=== PATIENT | female | born 1945 | race American Indian/Alaskan Native ===

== ENCOUNTER 2022-04-19 16:34 | Inpatient (IN) | payer MEDICARE ==
[~2022-04-19] VITALS: Ht 149.9 cm; Wt 71.4 kg
[~2022-04-19 16:34] MED LIST: HYDROchlorothiazide tablet PO; LEVO125T PO; MELO-102 PO; METF-900 PO; ONDA8TAB13 PO; SOTA80TA46 PO; SUMA25TA35 PO; TELM80TA2 PO
[2022-04-19 17:20] LABS: BASOPHILS % (AUTO) 0.4 % (0-1); EOSINOPHILS # (AUTO) 0.1 X10'3 (0-0.9); EOSINOPHILS % (AUTO) 1.9 % (0-6); HEMATOCRIT 37.9 % (35.0-45.0); HEMOGLOBIN 13.1 g/dl (12.0-16.0); LYMPHOCYTES # (AUTO) 2.1 X10'3 (1.1-4.8); LYMPHOCYTES % (AUTO) 32.7 % (21-51); MEAN CORPUSCULAR HEMOGLOBIN 29.6 PG (27.0-31.0); MEAN CORPUSCULAR HGB CONC 34.4 g/dL (33.0-36.5); MEAN CORPUSCULAR VOLUME 85.8 FL (78-98); MEAN PLATELET VOLUME 8.8 FL (7.4-10.4); MONOCYTES # (AUTO) 0.6 X10'3 (0-0.9); MONOCYTES % (AUTO) 8.6 % (2-12); NEUTROPHILS # (AUTO) 3.7 X10'3 (1.8-7.7); NEUTROPHILS % (AUTO) 56.4 % (42-75); PLATELET COUNT 207 X10'3 (140-440); RED BLOOD COUNT 4.42 X10'6 (4.20-5.60); RED CELL DISTRIBUTION WIDTH 14.1 % (11.5-14.5); WHITE BLOOD COUNT 6.5 X10'3 (4.5-11.0)
[2022-04-19 17:44] LABS: ALANINE AMINOTRANSFERASE 17 U/L (12-78); ALBUMIN 3.6 G/DL (3.4-5.0); ALBUMIN/GLOBULIN RATIO 1.2 (1.1-1.5); ALKALINE PHOSPHATASE 97 IU/L (46-116); ANION GAP 9 (8-16); ASPARTATE AMINO TRANSFERASE 14 U/L (10-37); BILIRUBIN,TOTAL 0.5 MG/DL (0.1-1.0); BLOOD UREA NITROGEN 13 MG/DL (7-18); BUN/CREATININE RATIO 16.5 (6.6-38.0); CALCIUM 9.6 MG/DL (8.5-10.1); CHLORIDE 98 MMOL/L (99-107); CREATININE 0.79 MG/DL (0.40-0.90); GLUCOSE 111 MG/DL (70-104); POTASSIUM 3.6 MMOL/L (3.5-5.1); SODIUM 135 MMOL/L (135-145); TOTAL PROTEIN 6.7 G/DL (6.4-8.2); eGFR 70 ML/MIN
[2022-04-19] MEDS ORDERED: nitroGLYCERIN 1gm ointment UD TP ONE (18:35)
[2022-04-19] MEDS ORDERED: ondansetron/PF 4mg/2ml inj IV PRN (19:25)
[2022-04-19] MEDS ORDERED: mag hydrox/Alum hydrox/simeth 30ml oral suspension PO PRN (19:25)
[2022-04-19] MEDS ORDERED: POTASSIUM BICARB 20meq eff tab 20 MEQ TABLET.EFF PO PRN ×2 (19:25)
[2022-04-19] MEDS ORDERED: magnesium 4gm in 100ml NS 100 ML IV PRN (19:25)
[2022-04-19] MEDS ORDERED: magnesium 2GM in 50ml NS 50 ML IV PRN (19:25)
[2022-04-19] MEDS ORDERED: magnesium hydroxide 30ml (MOM) UD suspension PO PRN (19:25)
[2022-04-19] MEDS ORDERED: PERFLUTREN PROTEIN-A MICROSPHR (Optison) 0.22 MG/ML 3ML VIAL IV ONE (19:25)
[2022-04-19] MEDS ORDERED: potassium CL 10mEq/100ml bag 100 ML IV PRN (19:25)
[2022-04-19] MEDS ORDERED: magnesium Cl slow-release 64mg tablet PO PRN (19:25)
[2022-04-19] MEDS ORDERED: acetaminophen 325mg tablet PO PRN (19:25)
[2022-04-19] MEDS ORDERED: insulin Lispro (HumaLOG) vial - multi-dose SQ SCH (19:30)
[2022-04-19] MEDS ORDERED: DEXTROSE 15 GM of carb/4 tabs (each vial/BOTTLE has 4 tablets) PO PRN ×2 (19:30)
[2022-04-19] MEDS ORDERED: MESSAGE TO PHARMACY PO ONE (19:30)
[2022-04-19] MEDS ORDERED: metoprolol tartrate 1mg/ml inj IV PRN (19:30)
[2022-04-19] MEDS ORDERED: regadenoson 0.4mg/5ml syringe IV PRN (19:30)
[2022-04-19] MEDS ORDERED: dextrose 50%-water 50ml dispensing syringe IV PRN ×2 (19:30)
[2022-04-19] MEDS ORDERED: aminophylline 250mg/10ml inj. IV PRN (19:30)
[2022-04-19] MEDS ORDERED: nitroGLYCERIN 0.4mg SUBLingual tab SL PRN (19:30)
[2022-04-19] MEDS ORDERED: glucagon, human recombinant 1mg kit SUBCUT PRN (19:30)
[2022-04-19] MEDS ORDERED: metoprolol tartrate 50mg tablet PO ONE (19:50)
--- NOTE | 2022-04-19 19:52 | NUR ---
NOTIFIED. DR. BRUCE OF . MEDS WILL BE ORDERED.
[2022-04-19 19:59] LABS: MAGNESIUM 1.8 MG/DL (1.5-2.4); POTASSIUM 3.5 MMOL/L (3.5-5.1)
[2022-04-19] MEDS: docusate sod 100mg capsule PO SCH (20:00)
[2022-04-19] MEDS: K and/or MAG REPLACEMENT MC SCH (20:00)
[2022-04-19] MEDS ORDERED: sotalol HCl 40mg (1/2 tablet) PO SCH (20:00)
[2022-04-19] MEDS: heparin, porcine 5000 units/ml vial SQ SCH (20:10)
[2022-04-19] MEDS ORDERED: amLODIPine 5mg tablet PO ONE ×2 (21:00→22:20)
[2022-04-19] MEDS ORDERED: amLODIPine 5mg tablet ONE (21:02)
--- NOTE | 2022-04-19 23:00 | NUR ---
Received report from Kitty MCINTOSH in the ER. Pt arrived on the unit via wheelchair and was able to ambulate using her cane to her bed. VSS, on room air, SL, pt has no signs of distress. Will continue to monitor.
[2022-04-19 23:22] VITALS: BP 214/75
[2022-04-20] VITALS (14 sets, daily range): BP systolic 102–178; BP diastolic 53–81
[2022-04-20 01:45] LABS: BASOPHILS % (AUTO) 0.6 % (0-1); EOSINOPHILS # (AUTO) 0.1 X10'3 (0-0.9); HEMOGLOBIN 12.4 g/dl (12.0-16.0); LYMPHOCYTES # (AUTO) 1.8 X10'3 (1.1-4.8); LYMPHOCYTES % (AUTO) 30.7 % (21-51); MEAN CORPUSCULAR HEMOGLOBIN 29.7 PG (27.0-31.0); MEAN CORPUSCULAR HGB CONC 34.6 g/dL (33.0-36.5); MEAN CORPUSCULAR VOLUME 85.9 FL (78-98); MEAN PLATELET VOLUME 8.9 FL (7.4-10.4); MONOCYTES # (AUTO) 0.4 X10'3 (0-0.9); MONOCYTES % (AUTO) 7.5 % (2-12); NEUTROPHILS # (AUTO) 3.5 X10'3 (1.8-7.7); NEUTROPHILS % (AUTO) 59.2 % (42-75); PLATELET COUNT 194 X10'3 (140-440); RED BLOOD COUNT 4.19 X10'6 (4.20-5.60); RED CELL DISTRIBUTION WIDTH 13.7 % (11.5-14.5); WHITE BLOOD COUNT 5.9 X10'3 (4.5-11.0)
[2022-04-20 02:00] LABS: ALANINE AMINOTRANSFERASE 16 U/L (12-78); ALBUMIN 3.1 G/DL (3.4-5.0); ALBUMIN/GLOBULIN RATIO 1.1 (1.1-1.5); ALKALINE PHOSPHATASE 91 IU/L (46-116); ANION GAP 5 (8-16); ASPARTATE AMINO TRANSFERASE 13 U/L (10-37); BILIRUBIN,TOTAL 0.4 MG/DL (0.1-1.0); BLOOD UREA NITROGEN 17 MG/DL (7-18); BUN/CREATININE RATIO 20.2 (6.6-38.0); CALCIUM 9.4 MG/DL (8.5-10.1); CHLORIDE 99 MMOL/L (99-107); CREATININE 0.84 MG/DL (0.40-0.90); GLUCOSE 138 MG/DL (70-104); POTASSIUM 3.4 MMOL/L (3.5-5.1); SODIUM 135 MMOL/L (135-145); TOTAL CARBON DIOXIDE 30.7 MMOL/L (24-32); eGFR 66 ML/MIN
[2022-04-20 02:03] LABS: CHOL/HDL RATIO 5.7 (0.00-4.99); CHOLESTEROL 221 MG/DL (0-200); HDL CHOLESTEROL 39 MG/DL (35-60); LDL CHOLESTEROL 131 MG/DL (50-100); MAGNESIUM 1.7 MG/DL (1.5-2.4); TRIGLYCERIDES 348 MG/DL (20-135)
--- NOTE | 2022-04-20 06:29 | NUR ---
Problems reprioritized. Patient report given, questions answered & plan of care reviewed with Suha MCINTOSH.
[2022-04-20] MEDS ORDERED: HYDR12.55 PO (07:23)
--- NOTE | 2022-04-20 07:47 | NUR ---
Diabetes consult: Noted pt w/ hx of DM A1c 6 on 03/09/22. Well controlled and appropriate, DM ed not indicated at this time. Addendum: 04/20/22 at [address] Amended: Links added.
[2022-04-20] MEDS: docusate sod 100mg capsule PO SCH ×2 (08:00→19:46)
[2022-04-20] MEDS: K and/or MAG REPLACEMENT MC SCH ×2 (08:00→20:00)
--- NOTE | 2022-04-20 10:00 | NUR ---
Spoke with Hospitalist during rounds. He is aware of yesterdays k level and does not want a redraw lab today.
[2022-04-20] MEDS: levoTHYROXINE 125mcg tablet PO SCH (10:04)
[2022-04-20] MEDS: aspirin 81mg tab.chew PO SCH (10:04)
[2022-04-20] MEDS: sotalol 80mg tablet PO SCH ×2 (10:04→19:46)
[2022-04-20] MEDS: heparin, porcine 5000 units/ml vial SQ SCH ×2 (10:05→19:47)
[2022-04-20] MEDS: losartan 50mg tablet PO SCH (10:57)
--- NOTE | 2022-04-20 11:53 | NUR ---
PAGER ID: [phone] MESSAGE: Yudelka Waterman [id number] Pt. c/o migraine. Can she have something? Refusing Maryjane. Suha [phone]
[2022-04-20] MEDS ORDERED: acetaminophen 325mg tablet PO ONE (12:40)
[2022-04-20] MEDS ORDERED: ondansetron 4mg rapidly disintigrating tab PO PRN (13:15)
--- NOTE | 2022-04-20 18:26 | NUR ---
GAVE REPORT TO DEBRA HUDDLESTON.
--- NOTE | 2022-04-20 18:30 | NUR ---
Patient in room PCU 3023. I have received report from radhames and had the opportunity to ask questions and assume patient care.
[2022-04-21 06:37] LABS: BASOPHILS % (AUTO) 0.5 % (0-1); EOSINOPHILS # (AUTO) 0.1 X10'3 (0-0.9); EOSINOPHILS % (AUTO) 2.1 % (0-6); HEMATOCRIT 39.5 % (35.0-45.0); HEMOGLOBIN 13.6 g/dl (12.0-16.0); LYMPHOCYTES # (AUTO) 1.6 X10'3 (1.1-4.8); LYMPHOCYTES % (AUTO) 32.1 % (21-51); MEAN CORPUSCULAR HEMOGLOBIN 30.1 PG (27.0-31.0); MEAN CORPUSCULAR HGB CONC 34.5 g/dL (33.0-36.5); MEAN CORPUSCULAR VOLUME 87.3 FL (78-98); MONOCYTES # (AUTO) 0.4 X10'3 (0-0.9); MONOCYTES % (AUTO) 7.1 % (2-12); NEUTROPHILS # (AUTO) 2.9 X10'3 (1.8-7.7); NEUTROPHILS % (AUTO) 58.2 % (42-75); PLATELET COUNT 214 X10'3 (140-440); RED BLOOD COUNT 4.53 X10'6 (4.20-5.60); RED CELL DISTRIBUTION WIDTH 13.9 % (11.5-14.5)
--- NOTE | 2022-04-21 06:37 | NUR ---
Problems reprioritized. Patient report given, questions answered & plan of care reviewed with melvin.
--- NOTE | 2022-04-21 06:40 | NUR ---
Patient in room PCU 3023. I have received report from Dirk Dixon and had the opportunity to ask questions and assume patient care.
[2022-04-21 07:00] VITALS: BP 127/54
[2022-04-21] MEDS: levoTHYROXINE 125mcg tablet PO SCH (07:12)
[2022-04-21] MEDS: docusate sod 100mg capsule PO SCH (07:12)
[2022-04-21] MEDS: sotalol 80mg tablet PO SCH (07:12)
[2022-04-21] MEDS: heparin, porcine 5000 units/ml vial SQ SCH (07:13)
[2022-04-21] MEDS: losartan 50mg tablet PO SCH (07:13)
[2022-04-21 07:16] LABS: ALANINE AMINOTRANSFERASE 17 U/L (12-78); ALBUMIN 3.4 G/DL (3.4-5.0); ALBUMIN/GLOBULIN RATIO 1.1 (1.1-1.5); ALKALINE PHOSPHATASE 90 IU/L (46-116); ANION GAP 11 (8-16); ASPARTATE AMINO TRANSFERASE 15 U/L (10-37); BILIRUBIN,TOTAL 0.5 MG/DL (0.1-1.0); BLOOD UREA NITROGEN 23 MG/DL (7-18); BUN/CREATININE RATIO 28.4 (6.6-38.0); CALCIUM 9.8 MG/DL (8.5-10.1); CHLORIDE 98 MMOL/L (99-107); CREATININE 0.81 MG/DL (0.40-0.90); GLUCOSE 139 MG/DL (70-104); MAGNESIUM 1.9 MG/DL (1.5-2.4); POTASSIUM 3.7 MMOL/L (3.5-5.1); SODIUM 138 MMOL/L (135-145); TOTAL CARBON DIOXIDE 29.4 MMOL/L (24-32); TOTAL PROTEIN 6.5 G/DL (6.4-8.2); eGFR 68 ML/MIN
[2022-04-21] MEDS: aspirin 81mg tab.chew PO SCH (07:22)
[2022-04-21] MEDS: K and/or MAG REPLACEMENT MC SCH (08:00)
[2022-04-21 11:00] VITALS: BP 137/59
--- NOTE | 2022-04-21 11:35 | NUR ---
Patient alert and oriented with no s/s of apparent acute distress. Discussed with patient discharge instructions. Patient verbalized understanding of teaching and stated no questions. Patient wanting to take shower before discharge.
--- NOTE | 2022-04-21 12:20 | NUR ---
Patient alert and oriented in no apparent acute distress at time of DC. Patient dc'd with all personal belongings escorted out in wheelchair accompanied by x1 staff.
== END 2022-04-21 12:20 | disposition home or self-care (01) | DRG 313 ==
LOC: ER 16:34 → ED HOLD 19:28 → PCU 3S 23:00
PROVIDERS: ADMIT Internal Medicine; ATTEND Internal Medicine
PROC: 4A02XM4 Measurement of Cardiac Total Activity, External Approach (ICD-10-PCS; principal; 2022-04-20)
PROC: 3E033HZ Introduction of Radioactive Substance into Peripheral Vein, Percutaneous Approach (ICD-10-PCS; 2022-04-20)
DX: R07.89 Other chest pain (principal); I48.0 Paroxysmal atrial fibrillation; I10 Essential (primary) hypertension; E11.9 Type 2 diabetes mellitus without complications; E03.9 Hypothyroidism, unspecified; E78.00 Pure hypercholesterolemia, unspecified; I08.1 Rheumatic disorders of both mitral and tricuspid valves; I25.10 Atherosclerotic heart disease of native coronary artery without angina pectoris; M47.814 Spondylosis without myelopathy or radiculopathy, thoracic region; Z79.82 Long term (current) use of aspirin; Z79.84 Long term (current) use of oral hypoglycemic drugs; Z79.890 Hormone replacement therapy; Z82.49 Family history of ischemic heart disease and other diseases of the circulatory system; Z85.850 Personal history of malignant neoplasm of thyroid; Z86.73 Personal history of transient ischemic attack (TIA), and cerebral infarction without residual deficits; Z90.710 Acquired absence of both cervix and uterus; Z88.0 Allergy status to penicillin; Z90.49 Acquired absence of other specified parts of digestive tract; Z79.899 Other long term (current) drug therapy
CPT/HCPCS: 36415; 71045; 78452; 80053; 80061; 82948; 83036; 83735; 83880; 84132; 84484; 85025; 87081; 93005; 93017; 93306; 99285; A6258; A9500; G0378; J1644; J1815; J2785

== ENCOUNTER 2023-09-16 11:33 | Inpatient (IN) | payer MEDICARE ==
[~2023-09-16] VITALS: Ht 149.9 cm; Wt 69.7 kg
[~2023-09-16 11:33] MED LIST changes: +HYDR12.55 PO; -HYDROchlorothiazide tablet PO; -ONDA8TAB13 PO
[2023-09-16] MEDS ORDERED: normal saline 1000ML IV soln IVB ONE (12:10)
[2023-09-16 12:26] LABS: BILIRUBIN,URINE NEGATIVE (Neg); CLARITY,URINE SLIGHTLY CLOUDY (Clear); COLOR,URINE YELLOW (Yellow); GLUCOSE, URINE NEGATIVE (Neg); KETONES,URINE 40 mg/dl (Neg); LEUKOCYTE ESTERASE ,URINE SMALL (Neg); NITRITES, URINE NEGATIVE (Neg); OCCULT BLOOD,URINE TRACE-INTACT (Neg); PROTEIN,URINE TRACE mg/dl (Neg); UROBILINOGEN,URINE 0.2 E.U/dL (0.2-1.0)
[2023-09-16 12:28] LABS: UA COLLECTION TYPE VOIDED
[2023-09-16 12:31] LABS: BACTERIA,URINE FEW /HPF (Neg); RBC,URINE 0-2 /HPF (0-2); SQUAMOUS EPITHELIAL CELL,UR FEW /LPF (FEW)
[2023-09-16 12:32] LABS: TRANSITIONAL EPI CELLS,URINE FEW /HPF
[2023-09-16 12:35] LABS: BASOPHILS % (AUTO) 0.2 % (0-1); EOSINOPHILS # (AUTO) 0.1 X10'3 (0-0.9); EOSINOPHILS % (AUTO) 0.7 % (0-6); HEMATOCRIT 44.9 % (35.0-45.0); HEMOGLOBIN 15.2 g/dl (12.0-16.0); LYMPHOCYTES # (AUTO) 1.1 X10'3 (1.1-4.8); LYMPHOCYTES % (AUTO) 13.6 % (21-51); MEAN CORPUSCULAR HEMOGLOBIN 29.3 PG (27.0-31.0); MEAN CORPUSCULAR HGB CONC 33.9 g/dL (33.0-36.5); MEAN CORPUSCULAR VOLUME 86.5 FL (78-98); MEAN PLATELET VOLUME 9.9 FL (7.4-10.4); MONOCYTES # (AUTO) 0.6 X10'3 (0-0.9); MONOCYTES % (AUTO) 6.6 % (2-12); NEUTROPHILS # (AUTO) 6.7 X10'3 (1.8-7.7); NEUTROPHILS % (AUTO) 78.9 % (42-75); PLATELET COUNT 259 X10'3 (140-440); RED BLOOD COUNT 5.18 X10'6 (4.20-5.60); RED CELL DISTRIBUTION WIDTH 13.6 % (11.5-14.5); WHITE BLOOD COUNT 8.4 X10'3 (4.5-11.0)
[2023-09-16 12:50] LABS: ALANINE AMINOTRANSFERASE 12 U/L (12-78); ALBUMIN 3.5 G/DL (3.4-5.0); ALBUMIN/GLOBULIN RATIO 1.1 (1.1-1.5); ALKALINE PHOSPHATASE 136 IU/L (46-116); ANION GAP 12 (8-16); ASPARTATE AMINO TRANSFERASE 17 U/L (10-37); BILIRUBIN,TOTAL 1.1 MG/DL (0.1-1.0); BLOOD UREA NITROGEN 10 MG/DL (7-18); BUN/CREATININE RATIO 13.9 (10.0-20.0); CALCIUM 10.2 MG/DL (8.5-10.1); CHLORIDE 98 MMOL/L (99-107); CREATININE 0.72 MG/DL (0.40-0.90); GLUCOSE 150 MG/DL (70-104); SODIUM 136 MMOL/L (135-145); TOTAL CARBON DIOXIDE 26.2 MMOL/L (24-32); TOTAL PROTEIN 6.6 G/DL (6.4-8.2); eCRCL 43 ML/MIN; eGFR 78 ML/MIN
[2023-09-16 12:55] LABS: POTASSIUM 2.5 MMOL/L (3.5-5.1)
[2023-09-16] MEDS ORDERED: levoFLOXACIN-Levaquin 500mg/D5 100 ML IV ONE (12:55)
--- NOTE | 2023-09-16 13:15 | NUR ---
PT IN RM 3, BIBA FOR INCREASED CONFUSION. PT IS A/O HOWEVER DOES NOT REASON WELL AND REPEATS HERSELF FREQUENTLY
[2023-09-16 13:20] LABS: MAGNESIUM 1.4 MG/DL (1.5-2.4)
[2023-09-16] MEDS ORDERED: magnesium hydroxide 30ml (MOM) UD suspension PO PRN (13:25)
[2023-09-16] MEDS ORDERED: mag hydrox/Alum hydrox/simeth 30ml oral suspension PO PRN (13:25)
[2023-09-16] MEDS ORDERED: insulin Lispro (HumaLOG) vial - multi-dose SQ SCH (13:25)
[2023-09-16] MEDS ORDERED: acetaminophen 325mg tablet PO PRN ×2 (13:25)
[2023-09-16] MEDS ORDERED: glucagon, human recombinant 1mg kit SUBCUT PRN (13:25)
[2023-09-16] MEDS ORDERED: MESSAGE TO PHARMACY PO ONE (13:25)
[2023-09-16] MEDS ORDERED: ondansetron/PF 4mg/2ml inj IV PRN (13:25)
[2023-09-16] MEDS ORDERED: dextrose 50%-water 50ml dispensing syringe IV PRN ×2 (13:25)
[2023-09-16] MEDS ORDERED: morphine 2 MG/ML inj. syringe IV PRN ×2 (13:25)
[2023-09-16] MEDS ORDERED: DEXTROSE 15 GM of carb/4 tabs (each vial/BOTTLE has 4 tablets) PO PRN ×2 (13:25)
[2023-09-16] MEDS: potassium Cl 40MEQ/1/2NS 520ml 520 ML IV SCH ×2 (13:29→16:00)
[2023-09-16] MEDS ORDERED: magnesium 4gm in 100ml NS 100 ML IV PRN (13:40)
[2023-09-16] MEDS ORDERED: potassium Cl 20 mEq SR tablet PO PRN (13:40)
[2023-09-16] MEDS ORDERED: magnesium 2GM in 50ml NS 50 ML IV PRN (13:40)
[2023-09-16] MEDS ORDERED: potassium Cl 40MEQ/1/2NS 520ml 520 ML IV PRN (13:40)
[2023-09-16] MEDS ORDERED: OLANZapine 5mg rapidly disint. tablet PO ONE (13:55)
[2023-09-16 14:09] LABS: PRO BRAIN NATRIURETIC PEPTIDE 683 PG/ML (0-450)
--- NOTE | 2023-09-16 14:30 | NUR ---
PT IS AGGITATED AND DEMANDING R/T HER FAMILY. AND CINTHYA RN AWARE.
--- NOTE | 2023-09-16 14:54 | NUR ---
MULTIPLE CALLS HAVE BEEN MADE TO PT'S WITH MESSAGES LEFT FOR HIM TO CALL. PT WAS ABLE TO TO PROVIDE A PHONE # OF A NEIGHBOR, RADHA, WHO LIVE ACROSS THE STRE[address] FROM PT. A MSG WAS LEFT TO CALL THE ER. MACKENZIE RETURNED THE CALL AND STATED THAT THE PT'S IS CURRENTLY A RESIDENT AT [facility]; RM 123B. PT WAS NOTIFIED AND ASKED THAT [facility] BE CALLED TO SEE IF HER WOULD BE ABLE TO SPEAK WITH THE PT SOMETIME SOON.` Addendum: 09/16/23 at 1525 by ZINA PHONE NUMBER TO [facility]: ; AARON HUDSON, IS IN RM 123 B
--- NOTE | 2023-09-16 15:32 | NUR ---
VIBRA FOR [phone] RM 123G
[2023-09-16] MEDS ORDERED: APIX5TAB3 PO (16:14)
[2023-09-16] MEDS ORDERED: AMLO10TA13 PO (16:14)
[2023-09-16] MEDS ORDERED: MELO-100 PO (16:14)
[2023-09-16] MEDS ORDERED: METF-900 PO (16:14)
[2023-09-16] MEDS ORDERED: ATOR40TA72 PO (16:14)
[2023-09-16] MEDS ORDERED: OMEP20CA16 PO (16:14)
--- NOTE | 2023-09-16 16:36 | NUR ---
pt frequently moves and removes the purwick. chucks replaced, purwick repositioned.
[2023-09-16] MEDS ORDERED: cyclobenzaprine 10mg tablet PO ONE (19:25)
[2023-09-16] MEDS: K and/or MAG REPLACEMENT MC SCH (19:30)
[2023-09-16] MEDS: cyclobenzaprine 10mg tablet PO SCH (19:41)
[2023-09-16] MEDS: docusate sod 100mg capsule PO SCH (19:41)
[2023-09-16] MEDS: insulin glargine (Lantus) pen - multi-dose SQ SCH (21:00)
[2023-09-16 22:00] VITALS: RESP 16; O2SAT 99
[2023-09-16 22:15] VITALS: BP 134/69; PULSE 73; RESP 16; TEMP 97.7; O2SAT 99
[2023-09-17] VITALS (9 sets, daily range): BP systolic 118–152; BP diastolic 58–86; PULSE 65–99; RESP 16–24; TEMP 97.3–99.4; O2SAT 94–99
[2023-09-17 05:37] LABS: BASOPHILS % (AUTO) 0.4 % (0-1); EOSINOPHILS # (AUTO) 0.1 X10'3 (0-0.9); EOSINOPHILS % (AUTO) 1.5 % (0-6); HEMATOCRIT 36.9 % (35.0-45.0); HEMOGLOBIN 12.3 g/dl (12.0-16.0); LYMPHOCYTES # (AUTO) 1.3 X10'3 (1.1-4.8); LYMPHOCYTES % (AUTO) 19.8 % (21-51); MEAN CORPUSCULAR HEMOGLOBIN 29.1 PG (27.0-31.0); MEAN CORPUSCULAR HGB CONC 33.2 g/dL (33.0-36.5); MEAN CORPUSCULAR VOLUME 87.5 FL (78-98); MEAN PLATELET VOLUME 10.4 FL (7.4-10.4); MONOCYTES # (AUTO) 0.6 X10'3 (0-0.9); MONOCYTES % (AUTO) 9.1 % (2-12); NEUTROPHILS # (AUTO) 4.4 X10'3 (1.8-7.7); NEUTROPHILS % (AUTO) 69.2 % (42-75); PLATELET COUNT 218 X10'3 (140-440); RED BLOOD COUNT 4.21 X10'6 (4.20-5.60); WHITE BLOOD COUNT 6.4 X10'3 (4.5-11.0)
[2023-09-17 06:17] LABS: ALBUMIN 2.7 G/DL (3.4-5.0); ANION GAP 9 (8-16); BLOOD UREA NITROGEN 6 MG/DL (7-18); CALCIUM 8.8 MG/DL (8.5-10.1); CHLORIDE 103 MMOL/L (99-107); CREATININE 0.67 MG/DL (0.40-0.90); GLUCOSE 131 MG/DL (70-104); MAGNESIUM 1.3 MG/DL (1.5-2.4); POTASSIUM 3.4 MMOL/L (3.5-5.1); SODIUM 137 MMOL/L (135-145); TOTAL CARBON DIOXIDE 24.9 MMOL/L (24-32); eCRCL 46 ML/MIN; eGFR 85 ML/MIN
--- NOTE | 2023-09-17 06:36 | NUR ---
Problems reprioritized. Patient report given, questions answered & plan of care reviewed with DAYNA Masters.
--- NOTE | 2023-09-17 06:42 | NUR ---
Problems reprioritized. Patient report given, questions answered & plan of care reviewed with DAYNA Masters.
--- NOTE | 2023-09-17 07:06 | NUR ---
Patient in room ORTHO 4017. I have received report from Carolina and had the opportunity to ask questions and assume patient care.
[2023-09-17] MEDS: K and/or MAG REPLACEMENT MC SCH ×2 (08:00→20:00)
[2023-09-17] MEDS: docusate sod 100mg capsule PO SCH ×2 (08:39→20:00)
[2023-09-17] MEDS: cyclobenzaprine 10mg tablet PO SCH ×2 (08:42→20:33)
[2023-09-17] MEDS: potassium Cl 20 mEq SR tablet PO PRN ×3 (08:43→20:34)
[2023-09-17] MEDS: magnesium Cl slow-release 64mg tablet PO PRN ×2 (08:44→20:34)
--- NOTE | 2023-09-17 14:33 | NUR ---
Re: 4017, Guevara, unable to do POP, pt unable to tolerate the cuff, just katia Masters
[2023-09-17] MEDS ORDERED: pantoprazole 40mg Tablet.DR PO PRN (15:40)
--- NOTE | 2023-09-17 15:41 | NUR ---
Student documentation: I have reviewed all interventions, assessments performed and documented by Ambika a Student Nurse with [facility].
--- NOTE | 2023-09-17 18:16 | NUR ---
Problems reprioritized. Patient report given, questions answered & plan of care reviewed with
--- NOTE | 2023-09-17 19:26 | NUR ---
Patient in room ORTHO 4017. I have received report from ROLANDO MCINTOSH and had the opportunity to ask questions and assume patient care.
[2023-09-17] MEDS: apixaban 5mg tablet PO SCH (20:33)
[2023-09-17] MEDS: sotalol 80mg tablet PO SCH (20:33)
[2023-09-17] MEDS: insulin glargine (Lantus) pen - multi-dose SQ SCH (21:00)
--- NOTE | 2023-09-18 05:16 | NUR ---
PATIENT VERY AGITATED LAST NIGHT. SPENT FIRST COUPLE OF HOURS IN THE SHIFT WALKING, FOLLOWING HER SHE WAS WANTING TO LEAVE. VERY CONFUSED AND PARANOID THAT INCREASED OVER THE SPACE OF 3 OR 4 HOURS. RC'D AN ORDER FOR VALIUM IV BUT PATIENT REFUSED TO ALLOW ME TO GIVE HER ANYTHING. REFUSED ACU CHECK WELL FULL PHYSICAL ASSMT. WOULD NOT ALLOW ME TO LOOK AT HER FEET. PATIENT EVENTUALLY GAVE IN TO REMAINING IN HER ROOM AND HAD A SITTER OUTSIDE THE DOOR, SHE EVENTUALLY CLIMBED INTO THE BED AND FELL ASLEEP. I DID NOT HAVE A NUMBER FOR THE PATIENT'S DAUGHTER I WAS HOPING SHE WOULD BE ABLE TO TALK TO THE PATIENT AND HELP CALM HER DOWN. STATES HER IS AT HOME, HAS A CAR AND FOR ME TO CALL HIM TO COME AND GET HER OR CALL THE POLICE. TABS ALARM IN USE AND SITTER WHILE PATIENT AWAKE.
[2023-09-18 05:58] LABS: BASOPHILS % (AUTO) 0.5 % (0-1); EOSINOPHILS # (AUTO) 0.1 X10'3 (0-0.9); EOSINOPHILS % (AUTO) 2.4 % (0-6); HEMATOCRIT 37.9 % (35.0-45.0); HEMOGLOBIN 12.8 g/dl (12.0-16.0); LYMPHOCYTES # (AUTO) 1.3 X10'3 (1.1-4.8); MEAN CORPUSCULAR HEMOGLOBIN 29.6 PG (27.0-31.0); MEAN CORPUSCULAR HGB CONC 33.7 g/dL (33.0-36.5); MEAN CORPUSCULAR VOLUME 87.8 FL (78-98); MEAN PLATELET VOLUME 11.1 FL (7.4-10.4); MONOCYTES # (AUTO) 0.4 X10'3 (0-0.9); MONOCYTES % (AUTO) 7.7 % (2-12); NEUTROPHILS # (AUTO) 3.9 X10'3 (1.8-7.7); NEUTROPHILS % (AUTO) 67.4 % (42-75); PLATELET COUNT 213 X10'3 (140-440); RED BLOOD COUNT 4.32 X10'6 (4.20-5.60); RED CELL DISTRIBUTION WIDTH 13.7 % (11.5-14.5); WHITE BLOOD COUNT 5.8 X10'3 (4.5-11.0)
--- NOTE | 2023-09-18 06:05 | NUR ---
received report from kerline gant
[2023-09-18 06:13] LABS: ALBUMIN 2.7 G/DL (3.4-5.0); ANION GAP 11 (8-16); BLOOD UREA NITROGEN 10 MG/DL (7-18); BUN/CREATININE RATIO 13.7 (10.0-20.0); CALCIUM 9.4 MG/DL (8.5-10.1); CHLORIDE 103 MMOL/L (99-107); CREATININE 0.73 MG/DL (0.40-0.90); GLUCOSE 142 MG/DL (70-104); MAGNESIUM 1.6 MG/DL (1.5-2.4); POTASSIUM 3.8 MMOL/L (3.5-5.1); SODIUM 137 MMOL/L (135-145); TOTAL CARBON DIOXIDE 23.1 MMOL/L (24-32); eCRCL 43 ML/MIN; eGFR 77 ML/MIN
--- NOTE | 2023-09-18 06:49 | NUR ---
Problems reprioritized. Patient report given, questions answered & plan of care reviewed with ROLANDO MCINTOSH.
--- NOTE | 2023-09-18 07:00 | NUR ---
pt is refusing to have her bg taken by nursing staff, aware, no new orders at this time
[2023-09-18] MEDS ORDERED: amLODIPine 5mg tablet PO SCH (08:00)
[2023-09-18] MEDS: docusate sod 100mg capsule PO SCH ×2 (08:00→19:54)
[2023-09-18] MEDS: K and/or MAG REPLACEMENT MC SCH ×2 (08:00→20:00)
[2023-09-18] MEDS: levoTHYROXINE 125mcg tablet PO SCH (08:14)
[2023-09-18] MEDS: atorvastatin 20mg tablet PO SCH (08:14)
[2023-09-18] MEDS: sotalol 80mg tablet PO SCH ×2 (08:14→19:55)
[2023-09-18] MEDS: HYDROchlorothiazide 12.5mg capsule PO SCH (08:15)
[2023-09-18] MEDS: apixaban 5mg tablet PO SCH ×2 (08:16→19:54)
[2023-09-18] MEDS: cyclobenzaprine 10mg tablet PO SCH ×2 (08:16→19:54)
[2023-09-18] MEDS: losartan 50mg tablet PO SCH (08:16)
[2023-09-18 09:27] VITALS: BP 146/80; PULSE 83
[2023-09-18 10:00] VITALS: BP 97/52; PULSE 64; RESP 18; TEMP 97.9; O2SAT 95
--- NOTE | 2023-09-18 12:55 | NUR ---
pt is refusing to have her bg checked, aware
[2023-09-18] MEDS ORDERED: ondansetron 4mg rapidly disintigrating tab PO PRN (14:00)
[2023-09-18] MEDS ORDERED: metFORMIN 500mg tablet PO SCH ×2 (14:05→14:06)
[2023-09-18 18:00] VITALS: BP 105/55; PULSE 70; RESP 18; TEMP 98.2; O2SAT 99
--- NOTE | 2023-09-18 18:09 | NUR ---
gave report to february,
[2023-09-18 20:30] VITALS: BP 123/60; PULSE 73; RESP 18; O2SAT 98
[2023-09-18] MEDS: insulin glargine (Lantus) pen - multi-dose SQ SCH (21:00)
[2023-09-19 06:00] VITALS: BP 131/84; PULSE 94; RESP 21; TEMP 97.5; O2SAT 98
[2023-09-19 07:30] LABS: BASOPHILS % (AUTO) 0.6 % (0-1); EOSINOPHILS # (AUTO) 0.1 X10'3 (0-0.9); HEMATOCRIT 37.9 % (35.0-45.0); HEMOGLOBIN 12.9 g/dl (12.0-16.0); LYMPHOCYTES # (AUTO) 1.3 X10'3 (1.1-4.8); MEAN CORPUSCULAR HEMOGLOBIN 29.6 PG (27.0-31.0); MEAN CORPUSCULAR HGB CONC 33.9 g/dL (33.0-36.5); MEAN CORPUSCULAR VOLUME 87.3 FL (78-98); MEAN PLATELET VOLUME 10.3 FL (7.4-10.4); MONOCYTES # (AUTO) 0.7 X10'3 (0-0.9); MONOCYTES % (AUTO) 10.4 % (2-12); NEUTROPHILS # (AUTO) 4.8 X10'3 (1.8-7.7); PLATELET COUNT 187 X10'3 (140-440); RED BLOOD COUNT 4.35 X10'6 (4.20-5.60); RED CELL DISTRIBUTION WIDTH 13.5 % (11.5-14.5)
[2023-09-19] MEDS: levoTHYROXINE 125mcg tablet PO SCH (07:58)
[2023-09-19] MEDS: sotalol 80mg tablet PO SCH ×2 (07:59→20:22)
[2023-09-19] MEDS: K and/or MAG REPLACEMENT MC SCH ×2 (08:00→20:00)
[2023-09-19] MEDS: docusate sod 100mg capsule PO SCH ×2 (08:01→20:22)
[2023-09-19] MEDS: losartan 50mg tablet PO SCH (08:03)
[2023-09-19 08:04] LABS: ALBUMIN 2.7 G/DL (3.4-5.0); ANION GAP 6 (8-16); BLOOD UREA NITROGEN 16 MG/DL (7-18); BUN/CREATININE RATIO 11.3 (10.0-20.0); CALCIUM 9.6 MG/DL (8.5-10.1); CHLORIDE 105 MMOL/L (99-107); CREATININE 1.42 MG/DL (0.40-0.90); GLUCOSE 148 MG/DL (70-104); MAGNESIUM 1.6 MG/DL (1.5-2.4); POTASSIUM 3.8 MMOL/L (3.5-5.1); SODIUM 138 MMOL/L (135-145); TOTAL CARBON DIOXIDE 26.6 MMOL/L (24-32); eCRCL 22 ML/MIN; eGFR 36 ML/MIN
[2023-09-19] MEDS: cyclobenzaprine 10mg tablet PO SCH ×2 (08:04→20:22)
[2023-09-19] MEDS: apixaban 5mg tablet PO SCH ×2 (08:04→20:22)
[2023-09-19] MEDS: HYDROchlorothiazide 12.5mg capsule PO SCH (08:05)
[2023-09-19] MEDS: atorvastatin 20mg tablet PO SCH (08:05)
[2023-09-19] MEDS: lisinopril 5mg tablet PO SCH (08:06)
[2023-09-19 09:00] VITALS: RESP 16
[2023-09-19] MEDS ORDERED: LISI5TAB22 PO (11:44)
[2023-09-19] MEDS ORDERED: AMLO10TA13 PO (11:50)
[2023-09-19 11:59] VITALS: BP 111/60; PULSE 68; RESP 14; TEMP 98; O2SAT 98
[2023-09-19 18:00] VITALS: BP 123/65; PULSE 63; RESP 14; TEMP 97.3; O2SAT 98
--- NOTE | 2023-09-19 19:13 | NUR ---
Problems reprioritized. Patient report given, questions answered & plan of care reviewed with Wendy MCINTOSH.
[2023-09-19 21:00] VITALS: BP 122/56; PULSE 68; RESP 15; TEMP 97.6; O2SAT 98
[2023-09-19] MEDS: insulin glargine (Lantus) pen - multi-dose SQ SCH (21:00)
[2023-09-19] MEDS ORDERED: FOSFOMYCIN TROMETHAMINE 3 GM PACKET PO ONE (23:00)
[2023-09-20 06:55] LABS: BASOPHILS % (AUTO) 0.5 % (0-1); EOSINOPHILS # (AUTO) 0.1 X10'3 (0-0.9); EOSINOPHILS % (AUTO) 2.1 % (0-6); HEMATOCRIT 37.5 % (35.0-45.0); HEMOGLOBIN 12.7 g/dl (12.0-16.0); LYMPHOCYTES # (AUTO) 1.2 X10'3 (1.1-4.8); LYMPHOCYTES % (AUTO) 21.4 % (21-51); MEAN CORPUSCULAR HEMOGLOBIN 29.6 PG (27.0-31.0); MEAN CORPUSCULAR HGB CONC 33.8 g/dL (33.0-36.5); MEAN CORPUSCULAR VOLUME 87.6 FL (78-98); MEAN PLATELET VOLUME 10.9 FL (7.4-10.4); MONOCYTES # (AUTO) 0.5 X10'3 (0-0.9); MONOCYTES % (AUTO) 8.4 % (2-12); NEUTROPHILS # (AUTO) 3.8 X10'3 (1.8-7.7); NEUTROPHILS % (AUTO) 67.6 % (42-75); PLATELET COUNT 197 X10'3 (140-440); RED BLOOD COUNT 4.28 X10'6 (4.20-5.60); RED CELL DISTRIBUTION WIDTH 13.5 % (11.5-14.5); WHITE BLOOD COUNT 5.6 X10'3 (4.5-11.0)
[2023-09-20 07:10] LABS: ALBUMIN 2.8 G/DL (3.4-5.0); ANION GAP 11 (8-16); BLOOD UREA NITROGEN 15 MG/DL (7-18); BUN/CREATININE RATIO 12.9 (10.0-20.0); CALCIUM 9.3 MG/DL (8.5-10.1); CHLORIDE 102 MMOL/L (99-107); CREATININE 1.16 MG/DL (0.40-0.90); GLUCOSE 130 MG/DL (70-104); MAGNESIUM 1.7 MG/DL (1.5-2.4); POTASSIUM 3.1 MMOL/L (3.5-5.1); SODIUM 138 MMOL/L (135-145); TOTAL CARBON DIOXIDE 24.8 MMOL/L (24-32); eCRCL 27 ML/MIN; eGFR 45 ML/MIN
[2023-09-20] MEDS: K and/or MAG REPLACEMENT MC SCH (08:00)
[2023-09-20 08:20] VITALS: BP 124/87; PULSE 83; RESP 18; TEMP 98; O2SAT 96
[2023-09-20] MEDS ORDERED: magnesium 4gm in 100ml NS 100 ML IV PRN (08:25)
[2023-09-20] MEDS ORDERED: potassium Cl 40MEQ/1/2NS 520ml 520 ML IV PRN (08:25)
[2023-09-20] MEDS ORDERED: magnesium Cl slow-release 64mg tablet PO PRN (08:25)
[2023-09-20] MEDS ORDERED: potassium Cl 20 mEq SR tablet PO PRN ×2 (08:25)
[2023-09-20] MEDS ORDERED: magnesium 2GM in 50ml NS 50 ML IV PRN (08:25)
[2023-09-20] MEDS: losartan 50mg tablet PO SCH (08:36)
[2023-09-20] MEDS: HYDROchlorothiazide 12.5mg capsule PO SCH (08:36)
[2023-09-20] MEDS: atorvastatin 20mg tablet PO SCH (08:36)
[2023-09-20] MEDS: cyclobenzaprine 10mg tablet PO SCH (08:37)
[2023-09-20] MEDS: sotalol 80mg tablet PO SCH (08:37)
[2023-09-20] MEDS: lisinopril 5mg tablet PO SCH (08:37)
[2023-09-20] MEDS: apixaban 5mg tablet PO SCH (08:37)
[2023-09-20] MEDS: levoTHYROXINE 125mcg tablet PO SCH (08:37)
[2023-09-20] MEDS: docusate sod 100mg capsule PO SCH (08:38)
[2023-09-20 08:45] VITALS: RESP 16
[2023-09-20 10:00] VITALS: BP 132/63; PULSE 62; RESP 18; TEMP 97.4; O2SAT 97
--- NOTE | 2023-09-20 10:08 | NUR ---
paged rn case manager to see what status is regarding Jeanine Cortez.
--- NOTE | 2023-09-20 11:06 | NUR ---
repaged Yumi Escamilla and he would like patient to go back to [facility] today. Yumi davies
[2023-09-20] MEDS ORDERED: LACT1CAP26 PO (12:25)
[2023-09-20] MEDS ORDERED: QUET25TA PO (13:57)
[2023-09-20] MEDS ORDERED: potassium Cl 20 mEq SR tablet PO STA (14:18)
--- NOTE | 2023-09-20 17:30 | NUR ---
Patient discharge instructions reviewed with patient and patient verbalized understanding and that she should give the packet to [facility] when she arrives. Patients IV dc'd cannula intact. Suha Cheng the last sorter of [place] [employer] came to lemon picker patient to take to [facility] ID celsa present. Patients only belongings were pair of pink glasses and clothes
[2023-09-20] MEDS ORDERED: K and/or MAG REPLACEMENT MC SCH (20:00)
== END 2023-09-20 17:36 | DRG 555 ==
LOC: ER 11:33 → ED HOLD 13:30 → ORTHO 4S 21:56
PROVIDERS: ADMIT Internal Medicine; ATTEND Internal Medicine
DX: M79.89 Other specified soft tissue disorders (principal); G93.41 Metabolic encephalopathy; T46.1X5A Adverse effect of calcium-channel blockers, initial encounter; I70.203 Unspecified atherosclerosis of native arteries of extremities, bilateral legs; I48.0 Paroxysmal atrial fibrillation; E11.9 Type 2 diabetes mellitus without complications; E87.6 Hypokalemia; E78.00 Pure hypercholesterolemia, unspecified; M79.672 Pain in left foot; E03.9 Hypothyroidism, unspecified; E83.42 Hypomagnesemia; I25.10 Atherosclerotic heart disease of native coronary artery without angina pectoris; I10 Essential (primary) hypertension; Z86.73 Personal history of transient ischemic attack (TIA), and cerebral infarction without residual deficits; Z90.49 Acquired absence of other specified parts of digestive tract; Z90.710 Acquired absence of both cervix and uterus; Z83.3 Family history of diabetes mellitus; Z82.49 Family history of ischemic heart disease and other diseases of the circulatory system; Z88.0 Allergy status to penicillin; Z88.5 Allergy status to narcotic agent; Z91.018 Allergy to other foods; Z88.1 Allergy status to other antibiotic agents; Z88.2 Allergy status to sulfonamides; Z79.899 Other long term (current) drug therapy; Y92.89 Other specified places as the place of occurrence of the external cause
CPT/HCPCS: 36415; 71045; 80048; 80053; 81001; 82948; 83036; 83735; 83880; 84145; 84443; 85025; 85651; 87081; 87088; 93306; 93922; 93925; 97161; 97530; 97535; 99285; G0378; J1815; J1956; J3480; J7030

== ENCOUNTER 2024-01-17 10:23 | Emergency (ER) | payer MEDICARE ==
[~2024-01-17] VITALS: Ht 149.9 cm; Wt 70.5 kg
[~2024-01-17 10:23] MED LIST changes: +APIX5TAB3 PO; +ATOR40TA72 PO; +LACT1CAP26 PO; +LISI5TAB22 PO; +MELO-100 PO; -MELO-102 PO; +OMEP20CA16 PO; -SUMA25TA35 PO
[2024-01-17] MEDS: acetaminophen 325mg tablet PO ONE (11:18)
[2024-01-17 12:47] VITALS: BP 120/66; PULSE 85; RESP 18; TEMP 97.5; O2SAT 98
== END 2024-01-17 13:01 | disposition home or self-care (01) ==
LOC: ER 10:24
DX: S00.03XA Contusion of scalp, initial encounter (principal); M25.562 Pain in left knee; M25.551 Pain in right hip; M25.552 Pain in left hip; I11.0 Hypertensive heart disease with heart failure; I50.9 Heart failure, unspecified; E78.00 Pure hypercholesterolemia, unspecified; E11.9 Type 2 diabetes mellitus without complications; K21.9 Gastro-esophageal reflux disease without esophagitis; E03.9 Hypothyroidism, unspecified; Z88.1 Allergy status to other antibiotic agents; Z88.5 Allergy status to narcotic agent; Z91.013 Allergy to seafood; Z79.899 Other long term (current) drug therapy; Z90.710 Acquired absence of both cervix and uterus; Z90.49 Acquired absence of other specified parts of digestive tract; W19.XXXA Unspecified fall, initial encounter; Y93.89 Activity, other specified; Y92.89 Other specified places as the place of occurrence of the external cause; Y99.8 Other external cause status
CPT/HCPCS: 70450; 72125; 72170; 73560; 99284; L0172

== ENCOUNTER 2024-08-29 12:38 | Inpatient (IN) | payer MEDICARE ==
[~2024-08-29] VITALS: Ht 162.6 cm; Wt 61.4 kg
[2024-08-29 13:56] LABS: BILIRUBIN,URINE NEGATIVE (Neg); CLARITY,URINE CLEAR (Clear); COLOR,URINE YELLOW (Yellow); GLUCOSE, URINE NEGATIVE (Neg); KETONES,URINE NEGATIVE (Neg); LEUKOCYTE ESTERASE ,URINE TRACE (Neg); NITRITES, URINE NEGATIVE (Neg); OCCULT BLOOD,URINE NEGATIVE (Neg); PROTEIN,URINE NEGATIVE (Neg); UROBILINOGEN,URINE 0.2 E.U/dL (0.2-1.0)
[2024-08-29 14:04] LABS: LYMPHOCYTES # (AUTO) 1.6 X10'3 (1.1-4.8); MEAN CORPUSCULAR HEMOGLOBIN 28.6 PG (27.0-31.0); MEAN CORPUSCULAR VOLUME 85.4 FL (78-98); MONOCYTES # (AUTO) 0.4 X10'3 (0-0.9)
[2024-08-29 14:06] LABS: BASOPHILS % (AUTO) 0.2 % (0-1); EOSINOPHILS % (AUTO) 0.6 % (0-6); HEMATOCRIT 39.6 % (35.0-45.0); HEMOGLOBIN 13.3 g/dl (12.0-16.0); LYMPHOCYTES % (AUTO) 22.8 % (21-51); MEAN CORPUSCULAR HGB CONC 33.6 g/dL (33.0-36.5); MEAN PLATELET VOLUME 10.6 FL (7.4-10.4); MONOCYTES % (AUTO) 5.9 % (2-12); NEUTROPHILS # (AUTO) 4.9 X10'3 (1.8-7.7); NEUTROPHILS % (AUTO) 70.5 % (42-75); PLATELET COUNT 288 X10'3 (140-440); RED BLOOD COUNT 4.64 X10'6 (4.20-5.60); RED CELL DISTRIBUTION WIDTH 16.2 % (11.5-14.5); WHITE BLOOD COUNT 6.9 X10'3 (4.5-11.0)
[2024-08-29 14:09] LABS: ALBUMIN 3.3 G/DL (3.4-5.0); ANION GAP 5 (8-16); BLOOD UREA NITROGEN 8 MG/DL (7-18); BUN/CREATININE RATIO 10.4 (10.0-20.0); CALCIUM 9.6 MG/DL (8.5-10.1); CHLORIDE 97 MMOL/L (99-107); CREATININE 0.77 MG/DL (0.40-0.90); GLUCOSE 136 MG/DL (70-104); MAGNESIUM 1.8 MG/DL (1.5-2.4); PRO BRAIN NATRIURETIC PEPTIDE 1275 PG/ML (0-450); SODIUM 135 MMOL/L (135-145); TOTAL CARBON DIOXIDE 32.9 MMOL/L (24-32); eGFR 72 ML/MIN
[2024-08-29 14:12] LABS: UA COLLECTION TYPE VOIDED
[2024-08-29 14:14] LABS: SQUAMOUS EPITHELIAL CELL,UR FEW /LPF (FEW)
[2024-08-29 14:16] LABS: BACTERIA,URINE NONE SEEN /HPF (Neg); WBC,URINE 0-4 /HPF (0-4)
[2024-08-29 14:28] LABS: PLATELET ESTIMATE NORMAL
[2024-08-29 14:29] LABS: ANISOCYTOSIS 1+; BURR CELLS 1+
[2024-08-29 14:30] LABS: ACANTHOCYTES FEW
[2024-08-29] MEDS ORDERED: magnesium Cl slow-release 64mg tablet PO PRN (15:05)
[2024-08-29] MEDS ORDERED: magnesium sulf-water 2g/50mL 50 ML IV PRN (15:05)
[2024-08-29] MEDS ORDERED: potassium Cl 40MEQ/1/2NS 520ml 520 ML IV PRN (15:05)
[2024-08-29] MEDS ORDERED: magnesium sulf-water 4G/100mL 100 ML IV PRN (15:05)
[2024-08-29] MEDS: levoFLOXACIN-Levaquin 250mg/D5 50 ML IV STA (16:01)
[2024-08-29] MEDS: LORazepam 0.5 MG tablet PO PRN (16:01)
[2024-08-29] MEDS: normal saline 1000ML IV soln IVB ONE ×2 (16:01)
[2024-08-29] MEDS ORDERED: ondansetron/PF 4mg/2ml inj IV PRN (16:15)
[2024-08-29] MEDS ORDERED: acetaminophen 325mg tablet PO PRN (16:15)
[2024-08-29] MEDS ORDERED: mag hydrox/Alum hydrox/simeth 30ml oral suspension PO PRN (16:15)
[2024-08-29] MEDS ORDERED: DEXTROSE 15 GM of carb/4 tabs (each vial/BOTTLE has 4 tablets) PO PRN ×2 (16:45)
[2024-08-29] MEDS ORDERED: dextrose 50%-water 50ml dispensing syringe IV PRN ×2 (16:45)
[2024-08-29] MEDS ORDERED: glucagon, human recombinant 1mg kit SUBCUT PRN (16:45)
[2024-08-29] MEDS: normal saline 1000ml 1,000 ML IV SCH (16:57)
[2024-08-29] MEDS: INSULIN LISPRO 100 UNIT/ML INSULN.PEN MULTI-DOSE SQ SCH (17:00)
[2024-08-29 18:00] LABS: HEMOGLOBIN A1C 6.8 % (4.5-6.2)
[2024-08-29] MEDS: K and/or MAG REPLACEMENT MC SCH (20:16)
[2024-08-29] MEDS ORDERED: OLAN5TAB75 PO (21:43)
[2024-08-29] MEDS ORDERED: DIVA125T31 PO (21:43)
[2024-08-29] MEDS ORDERED: FURO20TA4 PO (21:43)
[2024-08-29] MEDS ORDERED: AMLO10TA13 PO (21:43)
[2024-08-29] MEDS ORDERED: LORA-268 PO (21:43)
[2024-08-29] MEDS: apixaban 5mg tablet PO SCH (21:56)
[2024-08-29] MEDS: docusate sod 100mg capsule PO SCH (21:56)
[2024-08-29 22:17] VITALS: BP 115/59; PULSE 85; RESP 16; TEMP 97.7; O2SAT 94
[2024-08-29] MEDS: potassium Cl 20 mEq SR tablet PO PRN (23:12)
[2024-08-30 06:00] VITALS: BP 120/58; PULSE 71; RESP 18; TEMP 97.7; O2SAT 94
[2024-08-30 08:00] VITALS: RESP 16; O2SAT 95
[2024-08-30 08:23] LABS: BASOPHILS % (AUTO) 0.3 % (0-1); EOSINOPHILS # (AUTO) 0.1 X10'3 (0-0.9); EOSINOPHILS % (AUTO) 1.3 % (0-6); HEMATOCRIT 34.7 % (35.0-45.0); HEMOGLOBIN 11.7 g/dl (12.0-16.0); LYMPHOCYTES # (AUTO) 1.4 X10'3 (1.1-4.8); MEAN CORPUSCULAR HEMOGLOBIN 28.9 PG (27.0-31.0); MEAN CORPUSCULAR HGB CONC 33.7 g/dL (33.0-36.5); MEAN CORPUSCULAR VOLUME 85.6 FL (78-98); MEAN PLATELET VOLUME 10.3 FL (7.4-10.4); MONOCYTES # (AUTO) 0.4 X10'3 (0-0.9); MONOCYTES % (AUTO) 7.5 % (2-12); NEUTROPHILS % (AUTO) 61.9 % (42-75); PLATELET COUNT 249 X10'3 (140-440); RED BLOOD COUNT 4.05 X10'6 (4.20-5.60); RED CELL DISTRIBUTION WIDTH 15.9 % (11.5-14.5); WHITE BLOOD COUNT 4.8 X10'3 (4.5-11.0)
[2024-08-30 08:27] LABS: ALANINE AMINOTRANSFERASE 13 U/L (12-78); ALBUMIN 2.5 G/DL (3.4-5.0); ALBUMIN/GLOBULIN RATIO 0.8 (1.1-1.5); ALKALINE PHOSPHATASE 107 IU/L (46-116); ANION GAP 4 (8-16); ASPARTATE AMINO TRANSFERASE 17 U/L (10-37); BILIRUBIN,TOTAL 0.7 MG/DL (0.1-1.0); BLOOD UREA NITROGEN 4 MG/DL (7-18); BUN/CREATININE RATIO 7.1 (10.0-20.0); CHLORIDE 106 MMOL/L (99-107); CREATININE 0.56 MG/DL (0.40-0.90); GLUCOSE 115 MG/DL (70-104); MAGNESIUM 1.7 MG/DL (1.5-2.4); POTASSIUM 3.4 MMOL/L (3.5-5.1); SODIUM 141 MMOL/L (135-145); TOTAL CARBON DIOXIDE 31.4 MMOL/L (24-32); TOTAL PROTEIN 5.5 G/DL (6.4-8.2); eCRCL 69 ML/MIN; eGFR > 90 ML/MIN
[2024-08-30] MEDS: potassium Cl 20 mEq SR tablet PO PRN (09:22)
[2024-08-30 10:00] VITALS: BP 111/56; PULSE 65; RESP 12; TEMP 97; O2SAT 100
[2024-08-30] MEDS ORDERED: hyoscyamine 0.125mg TAB.SUBL SL PRN (16:05)
[2024-08-30] MEDS: LORazepam 0.5 MG tablet PO PRN (16:19)
[2024-08-30 18:00] VITALS: BP 129/76; PULSE 84; RESP 18; TEMP 97.7; O2SAT 99
[2024-08-31] MEDS: oxymetazoline 15 ML nasal spray NS SCH (02:45)
[2024-08-31] MEDS: morphine 10mg/0.5ml (conc. morphine) oral syringe PO PRN (02:49)
[2024-08-31 06:00] VITALS: BP 132/81; PULSE 69; RESP 16; TEMP 98.6; O2SAT 90
[2024-08-31 08:00] VITALS: RESP 14; O2SAT 96
[2024-08-31 10:00] VITALS: BP 135/70; PULSE 63; RESP 14; TEMP 97.6; O2SAT 96
[2024-08-31] MEDS: LORazepam 2 mg/ml vial IV PRN (10:03)
[2024-09-01 08:00] VITALS: RESP 14; O2SAT 96
[2024-09-01 10:00] VITALS: BP 168/89; PULSE 97; RESP 14; TEMP 98.5; O2SAT 96
[2024-09-01 18:00] VITALS: BP 158/74; PULSE 102; RESP 14; TEMP 98.9; O2SAT 91
[2024-09-01 22:00] VITALS: BP 129/72; PULSE 95; RESP 14; TEMP 98.6; O2SAT 95
[2024-09-02 06:00] VITALS: RESP 16; O2SAT 96
[2024-09-02 08:00] VITALS: RESP 16; O2SAT 95
[2024-09-02 10:00] VITALS: BP_SYST 125; BP_SYST 86; BP_DIAS 46; BP_DIAS 75; PULSE 75; PULSE 88; RESP 16; RESP 17; TEMP 97.2; O2SAT 97; O2SAT 98
[2024-09-02 22:00] VITALS: BP 135/91; PULSE 73; RESP 15; TEMP 97; O2SAT 96
[2024-09-03 10:00] VITALS: BP 148/74; PULSE 80; RESP 18; O2SAT 95
[2024-09-03 18:00] VITALS: BP 132/77; PULSE 100; RESP 20; TEMP 99.4; O2SAT 95
[2024-09-03 20:00] VITALS: RESP 20; O2SAT 95
[2024-09-03 22:00] VITALS: BP 133/75; PULSE 84; RESP 14; TEMP 99.1; O2SAT 96
[2024-09-04 08:00] VITALS: RESP 16; O2SAT 96
[2024-09-04 10:00] VITALS: BP 138/68; PULSE 97; RESP 14; TEMP 98.6; O2SAT 95
[2024-09-04 11:13] VITALS: RESP 15
== END 2024-09-04 13:32 | disposition hospice, home (50) | DRG 640 ==
LOC: ER 12:39 → ED HOLD 16:18 → ORTHO 4S 22:15
PROVIDERS: ADMIT Family Medicine; ATTEND Family Medicine
DX: E86.0 Dehydration (principal); G93.41 Metabolic encephalopathy; N39.0 Urinary tract infection, site not specified; U09.9 Post COVID-19 condition, unspecified; F03.A0 Unspecified dementia, mild, without behavioral disturbance, psychotic disturbance, mood disturbance, and anxiety; Z20.822 Contact with and (suspected) exposure to COVID-19; E78.00 Pure hypercholesterolemia, unspecified; E11.9 Type 2 diabetes mellitus without complications; I11.0 Hypertensive heart disease with heart failure; E03.9 Hypothyroidism, unspecified; I48.0 Paroxysmal atrial fibrillation; I50.9 Heart failure, unspecified; E87.6 Hypokalemia; I25.10 Atherosclerotic heart disease of native coronary artery without angina pectoris; K21.9 Gastro-esophageal reflux disease without esophagitis; Z51.5 Encounter for palliative care; Z88.0 Allergy status to penicillin; Z88.2 Allergy status to sulfonamides; Z88.5 Allergy status to narcotic agent; Z91.013 Allergy to seafood; Z79.01 Long term (current) use of anticoagulants; Z79.899 Other long term (current) drug therapy; Z90.710 Acquired absence of both cervix and uterus; Z86.73 Personal history of transient ischemic attack (TIA), and cerebral infarction without residual deficits; Z87.891 Personal history of nicotine dependence; Z88.1 Allergy status to other antibiotic agents; Z90.49 Acquired absence of other specified parts of digestive tract
CPT/HCPCS: 36415; 71045; 80048; 80053; 81001; 82948; 83036; 83605; 83735; 83880; 84145; 84484; 85008; 85025; 87040; 87081; 87088; 87811; 92508; 92616; 93005; 97110; 97116; 97161; 99285; A6250; A6258; G0378; J1815; J1956; J2060; J7030